=== PATIENT | female | born 1990 | race African-American/Black ===

== ENCOUNTER 2018-11-12 12:01 | Emergency (ER) | payer MEDICAID, OTHER ==
[~2018-11-12] VITALS: Ht 170.2 cm; Wt 61.0 kg
[2018-11-12] MEDS ORDERED: SODIUM CHLORIDE 0.9% 1,000 ML IV ONE (12:42)
[2018-11-12] MEDS ORDERED: METOCLOPRAMIDE HCL 10MG/2ML VIAL IV STA (12:42)
[2018-11-12] MEDS ORDERED: ONDANSETRON HCL 4MG/2ML INJ IV STA (12:42)
[2018-11-12] MEDS ORDERED: MAGNESIUM/ALUMINUM HYDROXIDE/SIMETHICONE 30ML UDC PO STA (12:42)
[2018-11-12] MEDS ORDERED: HALOPERIDOL LACTATE 5MG/ML VIAL IM ONE (12:45)
[2018-11-12] MEDS ORDERED: DIPHENHYDRAMINE 50MG/ML VIAL IV ONE (12:45)
[2018-11-12 12:55] LABS: CHLORIDE 86 mEq/L (98-107)
[2018-11-12 12:56] LABS: BASOPHILS % 0.8 % (0.0-2.0); EOSINOPHILS % 0.4 % (0.0-5.0); HEMATOCRIT. 44.4 % (36.0-48.0); HEMOGLOBIN. 15.7 g/dL (12.0-16.0); LYMPHOCYTES % 17.2 % (20.0-50.0); MEAN CORPUSCULAR HEMOGLOBIN 33.1 pg (28.0-32.0); MEAN CORPUSCULAR VOLUME 93.7 fL (81.0-99.0); MONOCYTES % 11.2 % (2.0-8.0); NEUTROPHILS % 70.4 % (40.0-76.0); PLATELET 400 x1000/uL (130-400); RED BLOOD CELL COUNT 4.74 mill/uL (4.2-5.4); RED CELL DISTRIBUTION WIDTH 14.2 % (11.6-14.6)
[2018-11-12 12:59] LABS: INR 1.1; PROTHROMBIN TIME 11.3 sec (9.6-11.0)
[2018-11-12 13:00] LABS: ETHANOL BLOOD < 10 mg/dL
[2018-11-12] MEDS ORDERED: POTASSIUM CHLORIDE 20MEQ TABLET SR PO NR (13:15)
[2018-11-12 13:20] LABS: HCG SCREEN NEGATIVE
[2018-11-12 14:53] VITALS: BP 145/85
== END 2018-11-12 14:54 | disposition home or self-care (01) ==
LOC: ER 12:01
DX: R11.2 Nausea with vomiting, unspecified (principal); E87.6 Hypokalemia; R10.84 Generalized abdominal pain; F12.10 Cannabis abuse, uncomplicated; F17.200 Nicotine dependence, unspecified, uncomplicated; N80.9 Endometriosis, unspecified
CPT/HCPCS: 36415; 74176; 80053; 80320; 83690; 84703; 85025; 85610; 96361; 96372; 96374; 96375; 99284; J1200; J1630; J2405; J2765; J7030; Z7610; G0480